=== PATIENT | male | born 1950 | race Caucasian/White ===

== ENCOUNTER → 2016-08-18 | Outpatient (CLI) | payer BC ==
[2016-08-18 14:05] LABS: Basophils % (A) 1 %; CH 31.1; CHCM 32.2; Eosinophils # (A) 0.2 k/uL (0-0.7); Eosinophils % (A) 3 %; HCT 48.5 % (39.0-53.0); HGB 15.5 gm/dL (13.0-17.5); Luc % (Auto) 3; Lymphocytes # (A) 2.3 k/uL (1.0-4.8); Lymphocytes % (A) 32 %; MCHC 31.9 g/dL (31.0-37.0); MCV 97.2 fL (80.0-100.0); Monocytes # (A) 0.4 k/uL (0-1.0); Monocytes % (A) 6 %; Neutrophils % (A) 56 %; RBC 4.99 m/uL (4.30-5.90); RDW 13.4 % (11.5-15.5); WBC 7.1 k/uL (3.8-10.6); WBC (Perox) 7.09
[2016-08-18 14:20] LABS: ALT 35 U/L (21-72); AST 20 U/L (17-59); Alkaline Phosphatase 83 U/L (38-126); Anion Gap 13 mmol/L; Blood Urea Nitrogen 19 mg/dL (9-20); Calcium 9.1 mg/dL (8.4-10.2); Carbon Dioxide 25 mmol/L (22-30); Chloride 107 mmol/L (98-107); Cholesterol 137 mg/dL (<200); Glucose 107 mg/dL (74-99); HDL Cholesterol 43 mg/dL (40-60); Non-African American GFR(MDRD) >60 (>60 ml/min/1.73 sqM); Potassium 4.6 mmol/L (3.5-5.1); Sodium 145 mmol/L (137-145); Total Bilirubin 1.1 mg/dL (0.2-1.3); Total Protein 7.5 g/dL (6.3-8.2); Triglycerides 145 mg/dL (<150)
[2016-08-18 14:51] LABS: Prostate Specific Antigen 0.51 ng/mL (0.00-4.00)
[2016-08-18 16:56] LABS: Hemoglobin A1C 5.7 % (4.2-6.1)
== END | disposition home or self-care (01) ==
LOC: LABWHC1 13:25
PROVIDERS: ATTEND Family Medicine
DX: Z00.00 Encounter for general adult medical examination without abnormal findings (principal); C61 Malignant neoplasm of prostate; I10 Essential (primary) hypertension; R73.01 Impaired fasting glucose; E78.5 Hyperlipidemia, unspecified
CPT/HCPCS: 36415; 80053; 80061; 80307; 83036; 84153; 84443; 85025

== ENCOUNTER → 2016-11-22 | Outpatient (CLI) | payer BC ==
[2016-11-22 10:59] LABS: Basophils % (A) 1 %; CH 30.5; CHCM 31.7; Eosinophils # (A) 0.2 k/uL (0-0.7); Eosinophils % (A) 3 %; HCT 47.8 % (39.0-53.0); HGB 15.2 gm/dL (13.0-17.5); Luc # (Auto) 0.18; Luc % (Auto) 2; Lymphocytes # (A) 2.2 k/uL (1.0-4.8); Lymphocytes % (A) 29 %; MCH 30.8 pg (25.0-35.0); MCHC 31.9 g/dL (31.0-37.0); MCV 96.6 fL (80.0-100.0); Monocytes # (A) 0.5 k/uL (0-1.0); Monocytes % (A) 6 %; Neutrophils # (A) 4.6 k/uL (1.3-7.7); Neutrophils % (A) 60 %; RBC 4.95 m/uL (4.30-5.90); RDW 13.5 % (11.5-15.5); WBC 7.7 k/uL (3.8-10.6); WBC (Perox) 7.44
[2016-11-22 11:41] LABS: ALT 30 U/L (21-72); AST 19 U/L (17-59); Alkaline Phosphatase 79 U/L (38-126); Anion Gap 11 mmol/L; Blood Urea Nitrogen 19 mg/dL (9-20); Calcium 9.5 mg/dL (8.4-10.2); Carbon Dioxide 27 mmol/L (22-30); Chloride 104 mmol/L (98-107); Cholesterol 121 mg/dL (<200); Glucose 109 mg/dL (74-99); HDL Cholesterol 42 mg/dL (40-60); Non-African American GFR(MDRD) >60 (>60 ml/min/1.73 sqM); Potassium 5.5 mmol/L (3.5-5.1); Sodium 142 mmol/L (137-145); Total Protein 7.5 g/dL (6.3-8.2); Triglycerides 130 mg/dL (<150)
[2016-11-22 14:10] LABS: Hemoglobin A1C 5.7 % (4.2-6.1)
[2016-11-26 06:50] LABS: Cotinine <2.0 ng/mL (<2.0); Nicotine <2.0 ng/mL (<2.0)
== END | disposition home or self-care (01) ==
LOC: LABMAIN 10:33
PROVIDERS: ATTEND Family Medicine
DX: Z00.00 Encounter for general adult medical examination without abnormal findings (principal); C61 Malignant neoplasm of prostate; I10 Essential (primary) hypertension; E78.5 Hyperlipidemia, unspecified; R73.01 Impaired fasting glucose
CPT/HCPCS: 36415; 80053; 80061; 80323; 83036; 84153; 84443; 85025

== ENCOUNTER → 2017-03-23 | Outpatient (CLI) | payer BC ==
[2017-03-23 13:42] LABS: Anion Gap 12 mmol/L; Blood Urea Nitrogen 22 mg/dL (9-20); Calcium 9.4 mg/dL (8.4-10.2); Carbon Dioxide 25 mmol/L (22-30); Chloride 101 mmol/L (98-107); Glucose 85 mg/dL (74-99); Non-African American GFR(MDRD) >60 (>60 ml/min/1.73 sqM); Sodium 138 mmol/L (137-145)
== END | disposition home or self-care (01) ==
LOC: LABWHC1 12:57
PROVIDERS: ATTEND Family Medicine
DX: R60.0 Localized edema (principal)
CPT/HCPCS: 36415; 80048

== ENCOUNTER → 2017-08-26 | Outpatient (CLI) | payer BC ==
[2017-08-26 10:22] LABS: Basophils % (A) 1 %; Eosinophils # (A) 0.3 k/uL (0-0.7); Eosinophils % (A) 3 %; HCT 46.2 % (39.0-53.0); HGB 14.2 gm/dL (13.0-17.5); Lymphocytes # (A) 2.6 k/uL (1.0-4.8); Lymphocytes % (A) 30 %; MCHC 30.8 g/dL (31.0-37.0); MCV 93.9 fL (80.0-100.0); Mean Platelet Volume 7.4; Monocytes # (A) 0.5 k/uL (0-1.0); Monocytes % (A) 6 %; Neutrophils # (A) 5.1 k/uL (1.3-7.7); Neutrophils % (A) 59 %; Platelet Count 258 k/uL (150-450); RBC 4.92 m/uL (4.30-5.90); RDW 13.5 % (11.5-15.5); WBC 8.6 k/uL (3.8-10.6)
[2017-08-26 10:26] LABS: ALT 32 U/L (21-72); AST 23 U/L (17-59); Alkaline Phosphatase 95 U/L (38-126); Anion Gap 11 mmol/L; Blood Urea Nitrogen 21 mg/dL (9-20); Calcium 9.2 mg/dL (8.4-10.2); Carbon Dioxide 28 mmol/L (22-30); Chloride 103 mmol/L (98-107); Cholesterol 131 mg/dL (<200); Glucose 110 mg/dL (74-99); HDL Cholesterol 39 mg/dL (40-60); LDL Cholesterol,Calculated 53 mg/dL (0-99); Potassium 5.3 mmol/L (3.5-5.1); Sodium 142 mmol/L (137-145); Total Protein 7.4 g/dL (6.3-8.2); Triglycerides 195 mg/dL (<150)
--- NOTE | 2017-08-26 10:31 | XR ---
EXAMINATION TYPE: XR lumbar spine 2 or 3V DATE OF EXAM: 08/26/2017 CLINICAL HISTORY: pain TECHNIQUE: Three views of the lumbar spine are submitted. COMPARISON: None. FINDINGS: There are 5 lumbar type vertebral bodies identified. The lumbar spine shows satisfactory alignment w ithout evidence of acute fracture or dislocation. Vertebral body heights are within normal limits. There is severe degenerative disc space narrowing at L5-S1 with vacuum discs. There is endplate irreg ularity suggested and I cannot Exclude underlying discitis or osteomyelitis. Correlate clinically. C onsider MRI. Correlate clinically indicated. The remaining levels demonstrate mild degenerative narro wing. The overlying soft tissue appears unremarkable. IMPRESSION: There is severe degenerative disc space narrowing at L5-S1 with vacuum discs. There is endplate irreg ularity suggested and I cannot Exclude underlying discitis or osteomyelitis. Correlate clinically. C onsider MRI. ICD 10 NO FRACTURE, INITIAL EVALUATION
[2017-08-26 18:28] LABS: Hemoglobin A1C 5.9 % (4.0-6.0)
== END | disposition home or self-care (01) ==
LOC: LABWHC1 09:41
PROVIDERS: ATTEND Family Medicine
DX: M48.07 Spinal stenosis, lumbosacral region (principal); E78.5 Hyperlipidemia, unspecified; R73.01 Impaired fasting glucose; I48.0 Paroxysmal atrial fibrillation; I10 Essential (primary) hypertension
CPT/HCPCS: 36415; 72100; 80053; 80061; 83036; 84443; 85025

== ENCOUNTER → 2017-10-09 | Outpatient (CLI) | payer BC ==
[2017-10-09 15:05] LABS: Basophils # (A) 0.1 k/uL (0-0.2); Basophils % (A) 1 %; Eosinophils # (A) 0.3 k/uL (0-0.7); Eosinophils % (A) 3 %; HCT 40.7 % (39.0-53.0); HGB 13.6 gm/dL (13.0-17.5); Lymphocytes # (A) 3.1 k/uL (1.0-4.8); Lymphocytes % (A) 34 %; MCHC 33.5 g/dL (31.0-37.0); MCV 92.5 fL (80.0-100.0); Mean Platelet Volume 7.4; Monocytes # (A) 0.6 k/uL (0-1.0); Monocytes % (A) 7 %; Neutrophils # (A) 4.9 k/uL (1.3-7.7); Neutrophils % (A) 53 %; Platelet Count 222 k/uL (150-450); RDW 13.4 % (11.5-15.5); WBC 9.2 k/uL (3.8-10.6)
[2017-10-09 15:17] LABS: Anion Gap 10 mmol/L; Blood Urea Nitrogen 21 mg/dL (9-20); Calcium 9.1 mg/dL (8.4-10.2); Carbon Dioxide 28 mmol/L (22-30); Chloride 102 mmol/L (98-107); Glucose 95 mg/dL (74-99); Potassium 5.1 mmol/L (3.5-5.1); Sodium 140 mmol/L (137-145)
== END | disposition home or self-care (01) ==
LOC: LABWHC1 14:45
PROVIDERS: ATTEND Internal Medicine Cardiovascular Disease
DX: R55 Syncope and collapse (principal); Z95.818 Presence of other cardiac implants and grafts
CPT/HCPCS: 36415; 80048; 85025